=== PATIENT | male | born 1935 | race Caucasian/White ===

== ENCOUNTER 2018-09-08 08:29 | Emergency (ER) | payer MEDICARE ==
[~2018-09-08] VITALS: Ht 177.8 cm; Wt 80.0 kg
[~2018-09-08 08:29] MED LIST: ASPIRIN LOW81 M1 PO; BABY ASPIRIN81 MG PO; CINNAMON500 MG PO; CRESTOR10 MG PO; CRESTOR20 MG PO; FISH OIL1200 M1 PO; KEFLEX500 MG PO; LISINOPRIL10 MG PO; LISINOPRIL40 MG PO; PRILOSEC20 MG/CAP PO
[2018-09-08 09:27] LABS: HEMATOCRIT 35.3 % (39.0-50.0); HEMOGLOBIN 11.4 g/dl (14.0-18.0); IMMATURE GRANULOCYTES 0.4 % (0.0-5.0); MEAN CELL VOLUME 98.3 fL CALC (80.0-100.0); MEAN CORPUSCULAR HGB 31.8 pG CALC (26.0-32.0); MEAN CORPUSCULAR HGB CONC 32.3 g/L CALC (32.0-36.0); NEUT# 5.58 thou/uL (1.82-7.42); RED BLOOD COUNT 3.59 mill/uL (4.70-6.10); RED CELL DISTRI WIDTH 13.5 % (11.5-15.5)
[2018-09-08] MEDS ORDERED: B121000 MCG (09:27)
[2018-09-08] MEDS ORDERED: GABAPENTIN100 MG PO (09:28)
[2018-09-08] MEDS ORDERED: METOPROL TAR25 MG PO (09:28)
[2018-09-08 09:38] LABS: PROTHROMBIN TIME 10.7 SECONDS (9.0-12.5)
[2018-09-08 10:05] VITALS: BP 160/70
== END 2018-09-08 10:15 | disposition home or self-care (01) ==
LOC: ED 08:29
PROVIDERS: Emergency Medicine
DX: R04.0 Epistaxis (principal); G62.9 Polyneuropathy, unspecified; Z95.5 Presence of coronary angioplasty implant and graft

== ENCOUNTER → 2018-09-25 | Outpatient (REF) | payer MEDICARE ==
[~2018-09-25] MED LIST changes: +B121000 MCG; +GABAPENTIN100 MG PO; +METOPROL TAR25 MG PO
== END | disposition home or self-care (01) ==
LOC: DI 11:37
PROVIDERS: ATTEND Internal Medicine
DX: R09.02 Hypoxemia (principal)